=== PATIENT | male | born 1955 | race African-American/Black ===

== ENCOUNTER 2016-10-31 04:14 | Emergency (ER) | payer MEDICARE, MEDICAID ==
[~2016-10-31] VITALS: Ht 175.3 cm; Wt 90.0 kg
[2016-10-31] MEDS ORDERED: NAPROXEN 375MG TABLET PO ONE (07:00)
[2016-10-31] MEDS ORDERED: IBUPROFEN 600MG TABLET PO ONE (07:15)
[2016-10-31 07:24] VITALS: BP 135/85
== END 2016-10-31 08:27 | disposition home or self-care (01) ==
LOC: ER 04:15
DX: M25.552 Pain in left hip (principal); F20.9 Schizophrenia, unspecified; I10 Essential (primary) hypertension; F17.200 Nicotine dependence, unspecified, uncomplicated; Z98.890 Other specified postprocedural states
CPT/HCPCS: 73502; 99284

== ENCOUNTER 2022-09-28 12:16 | Emergency (ER) | payer MEDICARE, MEDICAID ==
[~2022-09-28] VITALS: Ht 180.3 cm; Wt 124.2 kg
[2022-09-28] MEDS ORDERED: IOHEXOL-350 100 ML BOTTLE ONE (12:37)
[2022-09-28 13:16] LABS: BASOPHILS % 0.5 % (0.0-2.0); EOSINOPHILS % 0.8 % (0.0-5.0); HEMATOCRIT. 46.8 % (42.0-52.0); HEMOGLOBIN. 15.8 g/dL (14.0-18.0); LYMPHOCYTES % 27.8 % (20.0-50.0); MEAN CORPUSCULAR HEMOGLOBIN 28.8 pg (28.0-32.0); MEAN CORPUSCULAR VOLUME 85.2 fL (80.0-94.0); MEAN PLATELET VOLUME 7.2 fl (7.4-10.4); MONOCYTES % 10.2 % (2.0-8.0); NEUTROPHILS % 60.7 % (40.0-76.0); PLATELET 190 x1000/uL (130-400); RED BLOOD CELL COUNT 5.49 mill/uL (4.7-6.1); RED CELL DISTRIBUTION WIDTH 16.6 % (11.6-14.6)
[2022-09-28 13:24] LABS: CHLORIDE 110 mEq/L (98-107)
[2022-09-28 13:32] LABS: ETHANOL BLOOD < 10 mg/dL
[2022-09-28 14:45] LABS: PROTHROMBIN TIME 10.9 sec (9.6-11.0)
[2022-09-28 16:10] VITALS: BP 154/93
== END 2022-09-28 16:15 | disposition left against medical advice (07) ==
LOC: ER 12:33
DX: R47.81 Slurred speech (principal); I10 Essential (primary) hypertension; F20.9 Schizophrenia, unspecified; F17.210 Nicotine dependence, cigarettes, uncomplicated
CPT/HCPCS: 36415; 70450; 70496; 70498; 71045; 80053; 80320; 82962; 85025; 85610; 93005; 99285; Q9967; G0480

== ENCOUNTER 2024-07-08 03:00 | Emergency (ER) | payer OTHER, MEDICARE ==
[~2024-07-08] VITALS: Ht 182.9 cm; Wt 98.0 kg
[2024-07-08 03:03] VITALS: O2SAT 99
[2024-07-08] MEDS ORDERED: ACET-2708 MT (03:16)
[2024-07-08] MEDS: ACETAMINOPHEN 325MG TABLET PO NR (04:11)
[2024-07-08 04:14] VITALS: BP 116/73; PULSE 73; RESP 18; TEMP 36.72516; O2SAT 100
[2024-07-08] MEDS: ACETAMINOPHEN 325MG TABLET PO ONE (04:14)
== END 2024-07-08 04:30 | disposition home or self-care (01) ==
LOC: ER 03:00
DX: R51.9 Headache, unspecified (principal); I10 Essential (primary) hypertension; Z00.00 Encounter for general adult medical examination without abnormal findings; Z59.00 Homelessness unspecified; Z86.59 Personal history of other mental and behavioral disorders
CPT/HCPCS: 99283

== ENCOUNTER 2024-07-08 07:58 | Emergency (ER) | payer MEDICARE, OTHER ==
[~2024-07-08] VITALS: Ht 182.9 cm; Wt 98.0 kg
[~2024-07-08 07:58] MED LIST: ACET-2708 MT
[2024-07-08 08:04] VITALS: BP 120/74; PULSE 70; RESP 18; TEMP 98.5; O2SAT 100
[2024-07-08 10:57] LABS: HEMATOCRIT. 40.6 % (42.0-52.0); HEMOGLOBIN. 13.4 g/dL (14.0-18.0); MEAN CORPUSCULAR HEMOGLOBIN 28.6 pg (28.0-32.0); MEAN CORPUSCULAR HGB CONC 32.9 g/dL (31.0-37.0); MEAN CORPUSCULAR VOLUME 86.8 fL (80.0-94.0); PLATELET 131 x1000/uL (130-400); RED BLOOD CELL COUNT 4.68 mill/uL (4.7-6.1); RED CELL DISTRIBUTION WIDTH 15.9 % (11.6-14.6); WHITE BLOOD COUNT 4.6 x1000/uL (4.5-11.0)
[2024-07-08 11:05] LABS: DIFFERENTIAL COMMENT 1
[2024-07-08 11:10] LABS: CHLORIDE 102 mEq/L (98-107); POTASSIUM 3.7 mEq/L (3.5-5.1); SODIUM 136 mEq/L (136-145)
[2024-07-08 11:11] LABS: CARBON DIOXIDE 28 mEq/L (21-32)
[2024-07-08 11:16] LABS: CREATININE 1.1 mg/dL (0.6-1.3); GLUCOSE 140 mg/dL (70-105); UREA NITROGEN BLOOD 12 mg/dL (9-23)
[2024-07-08 11:17] LABS: TROPONIN I HIGH SENSITIVITY 7 ng/L (3.0-53)
[2024-07-08 12:11] LABS: PLATELET ESTIMATE SLIGHTLY DECREASED
== END 2024-07-08 12:46 | disposition home or self-care (01) ==
LOC: ER 07:58
DX: F20.9 Schizophrenia, unspecified (principal); I10 Essential (primary) hypertension; Z59.01 Sheltered homelessness
CPT/HCPCS: 36415; 80048; 84484; 85025; 93005; 99284